=== PATIENT | female | born 1960 | race Caucasian/White ===

== ENCOUNTER → 2016-11-30 | Outpatient (CLI) | payer BC ==
--- NOTE | 2016-11-30 11:15 | DIAGNOSTIC IMAGING REPORT ---
FUSION CT SINUSES W/O CLINICAL HISTORY: J34.3 Hypertrophy of both inferior nasal turbinates, recurrent acute sinusitis. Chronic sinus headaches. COMPARISON STUDY: No previous studies for comparison. FINDINGS: The mastoid air cells appear symmetrically aerated. The middle ear cavities appear well aerated. There is no hydrocephalus. No orbital lesions are visualized. There is minor right maxilla sinus mucosal thickening. The ostomy units appear patent bilaterally. There is partial pneumatization of middle turbinates. The ethmoid and frontal sinuses appear clear. The frontoethmoidal recesses appear patent bilaterally. IMPRESSION: 1. Minor right maxillary sinus mucosal thickening 2. No evidence of acute sinusitis 3. Partial pneumatization of middle turbinates 4. The ostiomeatal units are patent bilaterally Electronically signed by: Steven Porter M.D. 11/30/2016 11:14 AM Dictated Date/Time: 11/30/2016 11:11 AM
== END | disposition home or self-care (01) ==
LOC: C.CTS 10:55
DX: J34.3 Hypertrophy of nasal turbinates (principal)

== ENCOUNTER → 2017-03-17 | Outpatient (CLI) | payer BC ==
[~2017-03-17] MED LIST: OPTIRAY 320 IV PRN
[2017-03-17 15:50] LABS: CREATININE 0.78 mg/dl (0.60-1.20)
--- NOTE | 2017-03-17 17:45 | DIAGNOSTIC IMAGING REPORT ---
CT ABD/PELVIS IV AND ORAL CONT CLINICAL HISTORY: Left-sided abdominal pain COMPARISON STUDY: None. TECHNIQUE: Following the IV administration of 116 mL of Optiray-320, CT scan of the abdomen and pelvis was performed from the lung bases to the proximal femurs. Images are reviewed in the axial, sagittal, and coronal planes. IV contrast was administered without complication. A dose lowering technique was utilized adhering to the principles of ALARA. CT DOSE: 271.85 mGy.cm FINDINGS: Lower chest: There is minor basilar atelectatic change. Liver: The contrast-enhanced liver is normal in size, contour, and attenuation. There is no intrahepatic biliary ductal dilatation. The hepatic veins and portal veins are patent. Gallbladder: Unremarkable. Spleen: Normal in size and attenuation. Pancreas: Unremarkable. Adrenal glands: Unremarkable. Kidneys: There is a 7 mm right renal hypodensity, most likely representing a cyst. No solid renal masses are visualized. Bowel: There are no transition zones indicate bowel obstruction. The appendix appears normal. There is sausagelike thickening of the sigmoid colon with mild infiltration of the perisigmoid fat. The findings likely represent acute diverticulitis. An infectious colitis unrelated diverticulitis could potentially appear similar but is felt to be less likely. There are no fluid collections to indicate a drainable abscess. Peritoneum: There is no intraperitoneal free air or abdominal ascites. Vasculature: The abdominal aorta is normal in course and caliber. Adenopathy: None. Pelvic viscera: The uterus appears surgically absent. Skeletal structures: No destructive osseous lesions are seen. IMPRESSION: 1. Sausagelike thickening of the sigmoid colon with infiltration of the perisigmoid fat. The findings likely represent acute diverticulitis 2. No evidence of bowel obstruction. No evidence of free air 3. Normal appendix Electronically signed by: Steven Porter M.D. 03/17/2017 5:44 PM Dictated Date/Time: 03/17/2017 5:39 PM
== END | disposition home or self-care (01) ==
LOC: C.CTS 14:45
PROVIDERS: ATTEND Nurse Practitioner
DX: R10.32 Left lower quadrant pain (principal)

== ENCOUNTER → 2017-06-12 | Outpatient (CLI) | payer BC ==
--- NOTE | 2017-06-12 20:12 | DIAGNOSTIC IMAGING REPORT ---
ABD/PELVIS IV AND ORAL CONT HISTORY: 57 years-old Female LLQ PAIN,R/O DIVERTICULITIS acute left lower quadrant abdominal pain. Concern for acute diverticulitis. COMPARISON: CT abdomen and pelvis 03/17/2017 TECHNIQUE: Multiple axial CT images of the abdomen and pelvis were obtained following the intravenous administration of 115 mL Optiray 320. Oral contrast also administered. A dose lowering technique was used consistent with the principals of MARISA. FINDINGS: Mild dependent bibasilar atelectasis. Imaged inferior cardiac chambers are unremarkable. The liver, spleen, pancreas and left adrenal gland are unremarkable. Indeterminate soft tissue attenuating 1.5 x 1.1 cm lesion of the right adrenal gland is unchanged from 03/17/2017. Gallbladder is unremarkable. 6 mm low attenuating lesion of the interpolar left kidney is nonspecific, however suggests cyst. Bilateral kidneys, ureters and urinary bladder are otherwise unremarkable. No renal calculi or hydronephrosis. Prior hysterectomy. Abdominal aorta is normal in both course and caliber. No bulky retroperitoneal adenopathy. There is no bowel obstruction. Extensive sigmoid diverticulosis is present without definite evidence of acute diverticulitis. Moderate stool burden throughout the colon. The appendix appears normal. Soft tissues are unremarkable. Degenerative changes involve the bilateral sacroiliac joints. Mild posterior intervertebral disc space narrowing at L5-S1. Mild convex left curvature of the upper lumbar spine. IMPRESSION: 1. Extensive colonic diverticulosis without definite evidence of acute diverticulitis. 2. Normal appendix. No bowel obstruction. 3. Unchanged indeterminate 1.5 cm soft tissue attenuating lesion of the right adrenal gland. 4. Prior hysterectomy. The above report was generated using voice recognition software. It may contain grammatical, syntax or spelling errors. Electronically signed by: Marcel Adams M.D. 06/12/2017 8:11 PM Dictated Date/Time: 06/12/2017 8:04 PM
== END | disposition home or self-care (01) ==
LOC: C.CTS 17:30
PROVIDERS: ATTEND Family Medicine
DX: K57.92 Diverticulitis of intestine, part unspecified, without perforation or abscess without bleeding (principal); K57.30 Diverticulosis of large intestine without perforation or abscess without bleeding